=== PATIENT | female | born 1965 | race Caucasian/White ===

== ENCOUNTER 2019-01-05 10:17 | Day surgery (SDC) | payer BC ==
[~2019-01-05 10:17] MED LIST: ACETAMINOPHEN 1,000 MG/100 ML BTL IV ONE; CEFAZOLIN 2 Gram 2 GM/50 ML BAG IVPB ONE
[2019-01-05] MEDS ORDERED: LIDOCAINE 2% MDV (20MG/ML) 20ML VIAL IV ONE (10:18)
[2019-01-05] MEDS ORDERED: MIDAZOLAM HCL 2MG/2ML VIAL IV ONE (10:18)
[2019-01-05] MEDS ORDERED: DEXAMETHASONE 4 MG/ML 1ML VIAL IVP ONE (10:18)
[2019-01-05] MEDS ORDERED: SEVOFLURANE 250 ML INH ONE (10:18)
[2019-01-05] MEDS ORDERED: FENTANYL PF 100MCG/2ML VIAL IV ONE (10:18)
[2019-01-05] MEDS ORDERED: ONDANSETRON HCL IV 4 MG/2 ML VIAL IVP ONE (10:18)
[2019-01-05] MEDS ORDERED: PROPOFOL 10 MG/ML VIAL IV ONE (10:18)
[2019-01-05] MEDS ORDERED: MORPHINE SULFATE 4 MG/ML VIAL ONE (12:48)
[2019-01-05] MEDS ORDERED: METHYLPREDNISOLONE 40MG/VIAL IM ONE (13:19)
[2019-01-05] MEDS ORDERED: MORPHINE SULFATE 4 MG/ML VIAL SQ ONE (13:19)
[2019-01-05] MEDS ORDERED: BUPIVACAINE 0.5% W/EPI MPF 30 ML VIAL SQ ONE (13:19)
[2019-01-05] MEDS ORDERED: MORPHINE SULFATE 4 MG/ML VIAL IVP ONE (13:19)
--- NOTE | 2019-01-06 09:41 | Operative Note ---
DATE OF SURGERY: 01/05/2019 PREOPERATIVE DIAGNOSIS: Internal derangement of left knee. POSTOPERATIVE DIAGNOSES: 1. Grade 3 chondromalacia of the medial femoral condyle. 2. 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 OPERATION: Left knee arthroscopy with chondroplasty of the medial femoral condyle and lateral femoral condyle. Staff Surgeon: Tyrell Jones MD Anesthesia: General. Preparation: Chloraprep. Individual Considerations: None. PROCEDURE: The patient was taken to the operating room and placed supine on the operating room table. The patient had a successful induction with general anesthetic. The left lower extremity was prepped and draped in the usual fashion. The patient had a superolateral inflow cannula placed. Skin was infiltrated with 0.5% Marcaine with epinephrine prior. A stab wound was placed and the inflow cannula was placed. The knee was inflated with normal saline. An inferomedial and an inferolateral portal were made in a similar fashion. The arthroscope was introduced through the inferolateral portal up into the pouch. Patellofemoral joint showed some cracking in the patella and in the areas of the notch with normal tracking but nothing really to debride. No significant synovitis in the pouch or either gutter or loose bodies medially. She had a normal medial tibial plateau and normal medial meniscus. At about 45 degrees of flexion just lateral to the midline, she had an unstable flap of articular cartilage off the femur measuring, I would say, 2 x 1 cm. This was debrided off to stable cartilage rim with a shaver. Luckily, it was not down to bone. In the notch, the cruciates were normal. Laterally, she had fiber cartilage centrally on the femoral condyle and peripheral laterally there was some loose unstable flap which I debrided with a shaver but again not down to bone. The lateral meniscus and tibial plateau were otherwise intact. The knee was then irrigated out with saline to remove loose floating debris. Portals were closed with sherman, and 20 mL of 0.5% Marcaine with epinephrine along with 4 mg of morphine and 40 mg of Depo-Medrol were injected into the knee. A sterile bulky compressive dressing was applied. The patient tolerated procedure well. Needle and sponge counts were correct. Estimated blood loss was minimal. She was taken back to recovery in good condition. There were no complications. WILLIAMS
== END 2019-01-05 14:36 | disposition home or self-care (01) ==
LOC: SUR 10:17
PROVIDERS: ATTEND Orthopaedic Surgery
DX: M94.262 Chondromalacia, left knee (principal); I10 Essential (primary) hypertension; F17.210 Nicotine dependence, cigarettes, uncomplicated
CPT/HCPCS: 29877; 01400; J2405; J3010; J0690; J2270; J1030